=== PATIENT | female | born 1985 | race Caucasian/White ===

== ENCOUNTER 2017-09-13 09:23 | Day surgery (SDC) | payer OTHER ==
[2017-09-04 14:09] VITALS: BMI 21.4
[2017-09-13] MEDS ORDERED: MIDAZOLAM HCL 2 MG/2 ML SINGLE DOSE VIAL ONE (09:47)
[2017-09-13] MEDS ORDERED: PROPOFOL 20 ML ONE ×2 (10:23→10:44)
[2017-09-13] MEDS ORDERED: ceFAZolin SODIUM 1 GM VIAL ONE (10:27)
[2017-09-13] MEDS ORDERED: ONDANSETRON 4 MG/2 ML VIAL ONE ×2 (10:31→12:27)
[2017-09-13] MEDS ORDERED: DEXAMETHASONE SOD PHOSPHATE 4 MG/1 ML VIAL ONE (10:31)
[2017-09-13] MEDS ORDERED: BUPIVACAINE HCL/PF 0.25% (2.5MG/ML) 10 ML VIAL IJ ONE (11:57)
[2017-09-13] MEDS ORDERED: oxyCODONE HCL 5 MG TABLET PO PRN (12:11)
[2017-09-13] MEDS ORDERED: ONDANSETRON 4 MG/2 ML VIAL IVPUSH PRN (12:11)
[2017-09-13] MEDS ORDERED: LACTATED RINGERS SOLUTION 1,000 ML IV SCH (12:15)
[2017-09-13] MEDS ORDERED: KETOROLAC TROMETHAMINE 30 MG/1 ML VIAL ONE (12:58)
[2017-09-13] MEDS ORDERED: HYDROmorphone HCL CARPU-JECT 1 MG/1 ML DISP.SYRIN ONE (12:58)
[2017-09-13] MEDS ORDERED: oxyCODONE HCL 5 MG TABLET ONE (13:37)
[2017-09-13 18:02] VITALS: TEMP 98
[2017-09-13 18:14] VITALS: BP 125/74; PULSE 80
--- NOTE | 2017-09-18 16:47 | OP ---
DATE OF OPERATION: 09/13/2017 PREOPERATIVE DIAGNOSIS: Left chronic thumb carpometacarpal fracture dislocation. POSTOPERATIVE DIAGNOSIS: Left chronic thumb carpometacarpal fracture dislocation. OPERATIVE PROCEDURE: Open reduction and internal fixation of left thumb chronic carpometacarpal fracture dislocation. SURGEON: Dimas German MD [facility] [employer] HAND: MILAGRO Hagen ANESTHESIA: General. COMPLICATIONS: None. ESTIMATED BLOOD LOSS: Minimal. INDICATIONS FOR PROCEDURE: The patient is a 32-year-old female who sustained this injury approximately 5 months preoperatively. She was indicated for operative treatment. Risks, benefits, alternatives were discussed with patient at length. She especially understood that due to the delay in treatment, we would likely have damage to articular surfaces, which could lead to permanent arthritis or instability of the joint, and future surgery may be necessary, including an arthroplasty. She understood and desired to proceed. PROCEDURE: After proper identification of patient and correct operative site, patient brought to operating room, placed supine on the table, all prominences well padded. General was provided by the anesthesiologist, adequate for procedure. The left upper extremity was prepped and draped in usual sterile fashion. A well-padded tourniquet was placed with a sterile prep. Esmarch bandage to exsanguinate left upper extremity. Tourniquet was inflated to 250 mmHg. A Oreilly incision was made over the radial aspect of the thumb carpometacarpal joint. Incision was taken sharply through the skin with blunt and sharp dissection in subcutaneous tissues, carefully protecting neurovascular structures. The thenar muscle was elevated off the thumb carpometacarpal joint and a longitudinal capsulotomy was performed. The carpometacarpal joint of the thumb was then observed and found to have significant damage. There was a fracture of approximately 25% of the articular surface of the trapezium and all articular surface had been impacted and was no longer usable. A similar finding was visualized in the volar ulnar 25% of the metacarpal base, and this articular surface was too damaged to repair. 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 After debridement of the joint, the joint was able to be reduced and held in place with an Arthrex mini TightRope system as well as 1 K wire to control rotation. The K wire was placed from the index to the 2nd metacarpal. The TightRope was placed by drilling through the thumb metacarpal into the index metacarpal and passing the TightRope and placed it under appropriate tension. Radiograph showed concentric reduction of the joint, as did visualization of the joint. The capsule was imbricated and repaired. Skin was repaired in layers using 4-0 Vicryl and 4-0 nylon sutures. Sterile dressings were applied. The pin was cut short outside of the skin and bent. Splint was placed. Patient was reversed from anesthesia and brought to the recovery room in stable condition. She tolerated this procedure well. Juan Pablo Casey, the expanded function dental assistant, was integral throughout the procedure. The procedure could not have been performed without a skilled operative expanded function dental assistant. DIMAS GERMAN M.D. [id number]
== END 2017-09-13 14:50 | disposition home or self-care (01) ==
LOC: FASU 09:23
PROVIDERS: ATTEND Orthopaedic Surgery Hand Surgery
PROC: 0PSQ04Z Reposition Left Metacarpal with Internal Fixation Device, Open Approach (ICD-10-PCS; principal; 2017-09-13 10:15)
DX: S63.045A Dislocation of carpometacarpal joint of left thumb, initial encounter (principal); X58.XXXA Exposure to other specified factors, initial encounter; Y93.9 Activity, unspecified; Y92.9 Unspecified place or not applicable
CPT/HCPCS: 73130-TC-LT; 84703; 94760